=== PATIENT | male | born 1960 | race Caucasian/White ===

== ENCOUNTER 2018-03-21 12:49 | Day surgery (SDC) | payer OTHER ==
[2018-03-21] MEDS ORDERED: MIDAZOLAM 1 MG/ML 2 ML INJ ×2 (14:25→14:26)
[2018-03-21] MEDS ORDERED: MEPERIDINE 50 MG INJ (14:26)
[2018-03-21] MEDS ORDERED: FENTAnyl 50 MCG/ML VIAL (14:27)
== END 2018-03-21 15:19 | disposition home or self-care (01) ==
LOC: GIL 12:49
DX: Z12.11 Encounter for screening for malignant neoplasm of colon (principal); K64.8 Other hemorrhoids
CPT/HCPCS: 45378